=== PATIENT | female | born 1950 | race Caucasian/White ===

== ENCOUNTER 2023-10-28 20:22 | Inpatient (IN) ==
[2023-10-28] MEDS ORDERED: IOPAMIDOL 100 ML BOTTLE IV ONE (20:23)
[2023-10-28] MEDS ORDERED: ALBUTEROL SULFATE 2.5 MG/3 ML NEBULIZER NEB ONE ×2 (20:36→22:11)
[2023-10-28 21:22] LABS: Basophils # (Auto) 0.01 K/mcL (0.00-0.30); Basophils % (Auto) 0.1 % (0.0-2.0); Eosinophils # (Auto) 0.15 K/mcL (0.00-0.70); Eosinophils % (Auto) 1.3 % (0.0-7.0); Hematocrit 41.8 % (34.1-44.9); Hemoglobin 13.4 g/dL (11.2-15.7); Lymphocytes # (Auto) 3.53 K/mcL (1.50-4.80); Mean Cell Volume 94.8 fL (80.0-100.0); Mean Corpuscular HGB Conc 32.1 g/dL (31.0-36.0); Mean Platelet Volume 10.1 fL (8.8-12.5); Monocytes # (Auto) 1.13 K/mcL (0.10-0.90); Monocytes % (Auto) 9.9 % (1.0-12.0); Neutrophils % (Auto) 57.5 % (38.0-78.0); Platelet Count 165 K/mcL (140-440); RBC 4.41 M/mcL (3.59-5.38); Red Cell Distribution Width 13.2 % (11.5-14.5); WBC 11.4 K/mcL (4.5-11.0)
[2023-10-28 21:49] LABS: POC Calcium, Ionized 0.98 (1.16-1.32); POC Creatinine 1.2 (0.6-1.2); POC Potassium 3.5 (3.3-5.1)
[2023-10-28] MEDS ORDERED: 0.9 % SODIUM CHLORIDE 500 ML IV ONE (22:20)
[2023-10-28] MEDS ORDERED: AZITHROMYCIN 500 MG in DEXTROSE 5% IN WATER 250 ML IV ONE (22:20)
[2023-10-28] MEDS ORDERED: AMOXICILLIN/POTASSIUM CLAV 875 MG TABLET PO ONE (22:20)
[2023-10-28 22:41] LABS: proBNP 499.3 pg/mL (<450.0)
[2023-10-29] MEDS ORDERED: MAGNESIUM SULFATE 2 GM/50 ML BAG IV ONE ×3 (00:08→04:20)
[2023-10-29] MEDS ORDERED: LACTATED RINGERS 1,000 ML IV ONE (01:13)
[2023-10-29] MEDS ORDERED: ONDANSETRON 4 MG/2 ML VIAL IV ONE (01:23)
[2023-10-29] MEDS ORDERED: oxyCODONE/APAP 5/325MG TABLET PO PRN (01:23)
[2023-10-29] MEDS ORDERED: NALOXONE HCL 0.4 MG/ML VIAL IV PRN (01:23)
[2023-10-29] MEDS ORDERED: guaiFENesin/CODEINE 10 ML UDC PO ONE (01:41)
[2023-10-29] MEDS: IPRATROPIUM/ALBUTEROL 3 ML AMPUL.NEB NEB PRN ×4 (03:18→18:00)
[2023-10-29] MEDS: LORazepam 0.5 MG TABLET PO PRN (04:11)
[2023-10-29] MEDS ORDERED: RACEPINEPHRINE 0.5 ML AMPUL.NEB NEB ONE (04:14)
[2023-10-29] MEDS ORDERED: morphine 2 MG/ML VIAL IV ONE (04:17)
[2023-10-29] MEDS ORDERED: morphine 2 MG/ML VIAL ONE (04:20)
[2023-10-29] MEDS ORDERED: RACEPINEPHRINE 0.5 ML AMPUL.NEB ONE (04:21)
[2023-10-29] MEDS: methylPREDNISolone SOD SUCC 40 MG/ML VIAL IV SCH ×3 (06:18→22:12)
[2023-10-29] MEDS: RACEPINEPHRINE 0.5 ML AMPUL.NEB NEB SCH ×3 (08:53→21:07)
[2023-10-29] MEDS ORDERED: ONDANSETRON 4 MG/2 ML VIAL IV PRN (09:13)
[2023-10-29] MEDS ORDERED: ONDANSETRON 4 MG ODT TABLET SL PRN (09:18)
[2023-10-29] MEDS ORDERED: MAGNESIUM HYDROXIDE 30 ML ORAL.SUSP PO PRN (09:18)
[2023-10-29] MEDS ORDERED: morphine 4 MG/ML VIAL IV PRN (09:18)
[2023-10-29] MEDS ORDERED: ZOLPIDEM 5 MG TABLET PO PRN (09:18)
[2023-10-29] MEDS ORDERED: MAG HYDROX/AL HYDROX/SIMETH 30 ML ORAL.SUSP PO PRN (09:18)
[2023-10-29] MEDS: LACTATED RINGERS 1,000 ML IV SCH ×2 (09:38→20:35)
[2023-10-29] MEDS: PIOGLITAZONE 15 MG TABLET PO SCH (09:39)
[2023-10-29] MEDS: glipiZIDE 5 MG TAB.XL.24H PO SCH (09:39)
[2023-10-29] MEDS: POTASSIUM CHLORIDE 20 MEQ TABLET PO SCH (09:39)
[2023-10-29] MEDS: ATORVASTATIN 20 MG TABLET PO SCH (09:40)
[2023-10-29] MEDS: DOXAZOSIN 4 MG TABLET PO SCH (09:40)
[2023-10-29] MEDS: SUCRALFATE 1 GM TABLET PO SCH ×2 (09:40→20:31)
[2023-10-29] MEDS ORDERED: DEXTROSE 50% 50 ML VIAL IV PRN (11:24)
[2023-10-29] MEDS ORDERED: DEXTROSE 31 GM ORAL.SUSP PO PRN (11:24)
[2023-10-29] MEDS: INSULIN LISPRO 1 UNIT/0.01 ML UNIT SQ SCH ×3 (11:44→20:32)
[2023-10-29] MEDS: AZITHROMYCIN 500 MG in DEXTROSE 5% IN WATER 250 ML IV SCH (13:46)
[2023-10-29] MEDS: ALBUTEROL SULFATE 2.5 MG/3 ML NEBULIZER NEB PRN ×2 (15:25→21:07)
[2023-10-29] MEDS: ACETAMINOPHEN 325 MG TABLET PO PRN (18:57)
[2023-10-29] MEDS: OMEPRAZOLE 20 MG CAPSULE PO SCH (20:30)
[2023-10-29] MEDS: DOCUSATE SODIUM 100 MG CAPSULE PO SCH (20:30)
[2023-10-29] MEDS: LISINOPRIL 5 MG TABLET PO SCH (20:31)
[2023-10-29] MEDS: SENNOSIDES 1 TABLET PO SCH (20:31)
[2023-10-29] MEDS: LATANOPROST OPHTH DROPS 2.5ML BOTTLE OU SCH (20:31)
[2023-10-29] MEDS: INSULIN GLARGINE, HUMAN 1 UNIT/0.01 ML SQ SCH (20:33)
[2023-10-29] MEDS: ENOXAPARIN 40 MG/0.4 ML SYRINGE SQ SCH (20:36)
[2023-10-29] MEDS: LOSARTAN 50 MG TABLET PO SCH (20:54)
[2023-10-30] MEDS: ACETAMINOPHEN 325 MG TABLET PO PRN ×2 (04:53→21:47)
[2023-10-30 05:58] LABS: Basophils # (Auto) 0 K/mcL (0.00-0.30); Basophils % (Auto) 0 % (0.0-2.0); Eosinophils # (Auto) 0 K/mcL (0.00-0.70); Eosinophils % (Auto) 0 % (0.0-7.0); Hematocrit 38.3 % (34.1-44.9); Hemoglobin 11.6 g/dL (11.2-15.7); Lymphocytes # (Auto) 0.85 K/mcL (1.50-4.80); Lymphocytes % (Auto) 5.2 % (15.5-49.0); Mean Cell Volume 100.3 fL (80.0-100.0); Mean Corpuscular HGB Conc 30.3 g/dL (31.0-36.0); Mean Platelet Volume 10.2 fL (8.8-12.5); Monocytes % (Auto) 2.5 % (1.0-12.0); Neutrophils % (Auto) 91.9 % (38.0-78.0); Platelet Count 152 K/mcL (140-440); RBC 3.82 M/mcL (3.59-5.38); Red Cell Distribution Width 13.9 % (11.5-14.5); WBC 16.2 K/mcL (4.5-11.0)
[2023-10-30] MEDS: methylPREDNISolone SOD SUCC 40 MG/ML VIAL IV SCH ×3 (06:00→22:18)
[2023-10-30] MEDS: ALBUTEROL SULFATE 2.5 MG/3 ML NEBULIZER NEB PRN (06:55)
[2023-10-30 07:15] LABS: ALT/SGPT 13 U/L (<40); AST/SGOT 23 U/L (<32); Albumin 3.3 gm/dL (3.2-5.2); Alkaline Phosphatase 61 U/L (39-117); Bilirubin,Direct < 0.2 mg/dL (0-0.3); Bilirubin,Total 0.4 mg/dL (0.1-1.0); Blood Urea Nitrogen 24 mg/dL (8-23); Calcium 8.5 mg/dL (8.6-10.4); Carbon Dioxide 19 mmol/L (22-30); Chloride 100 mmol/L (96-108); Globulin 3.2 gm/dL (2.2-3.7); Glomerular Filtration Rate 55; Glucose 198 mg/dL (70-105); Lactate Dehydrogenase 323 U/L (135-225); Phosphorous 3.4 mg/dL (2.5-4.5); Triglycerides 62 mg/dL (<150); Uric Acid 3.7 mg/dL (2.5-8.0)
[2023-10-30] MEDS: LACTATED RINGERS 1,000 ML IV SCH (07:34)
[2023-10-30] MEDS: SUCRALFATE 1 GM TABLET PO SCH ×2 (07:37→21:46)
[2023-10-30] MEDS: INSULIN LISPRO 1 UNIT/0.01 ML UNIT SQ SCH ×4 (07:43→21:50)
[2023-10-30] MEDS: RACEPINEPHRINE 0.5 ML AMPUL.NEB NEB SCH ×3 (08:40→21:23)
[2023-10-30] MEDS: AZITHROMYCIN 500 MG in DEXTROSE 5% IN WATER 250 ML IV SCH (08:40)
[2023-10-30] MEDS: ATORVASTATIN 20 MG TABLET PO SCH (08:45)
[2023-10-30] MEDS: POTASSIUM CHLORIDE 20 MEQ TABLET PO SCH (08:45)
[2023-10-30] MEDS: DOCUSATE SODIUM 100 MG CAPSULE PO SCH ×2 (08:45→21:49)
[2023-10-30] MEDS: DOXAZOSIN 4 MG TABLET PO SCH (08:46)
[2023-10-30] MEDS: glipiZIDE 5 MG TAB.XL.24H PO SCH (08:46)
[2023-10-30] MEDS: PIOGLITAZONE 15 MG TABLET PO SCH (08:46)
[2023-10-30] MEDS: ENOXAPARIN 40 MG/0.4 ML SYRINGE SQ SCH ×2 (08:46→21:50)
[2023-10-30] MEDS: LORazepam 0.5 MG TABLET PO PRN (08:52)
[2023-10-30] MEDS ORDERED: PNEUMOCOCCAL 23-VAL P-SAC VAC 0.5 ML SYRINGE IM ONE (10:00)
[2023-10-30] MEDS: guaiFENesin/CODEINE 10 ML UDC PO PRN (10:07)
[2023-10-30] MEDS ORDERED: RACEPINEPHRINE 0.5 ML AMPUL.NEB NEB SCH (13:00)
[2023-10-30] MEDS: IPRATROPIUM/ALBUTEROL 3 ML AMPUL.NEB NEB PRN (21:23)
[2023-10-30] MEDS: OMEPRAZOLE 20 MG CAPSULE PO SCH (21:46)
[2023-10-30] MEDS: LISINOPRIL 5 MG TABLET PO SCH (21:48)
[2023-10-30] MEDS: LOSARTAN 50 MG TABLET PO SCH (21:49)
[2023-10-30] MEDS: SENNOSIDES 1 TABLET PO SCH (21:49)
[2023-10-30] MEDS: INSULIN GLARGINE, HUMAN 1 UNIT/0.01 ML SQ SCH (21:51)
[2023-10-30] MEDS: LATANOPROST OPHTH DROPS 2.5ML BOTTLE OU SCH (21:51)
[2023-10-31] MEDS: LORazepam 0.5 MG TABLET PO PRN (00:23)
[2023-10-31] MEDS: guaiFENesin/CODEINE 10 ML UDC PO PRN ×5 (00:23→21:14)
[2023-10-31] MEDS: ALBUTEROL SULFATE 2.5 MG/3 ML NEBULIZER NEB PRN (00:37)
[2023-10-31] MEDS: IPRATROPIUM/ALBUTEROL 3 ML AMPUL.NEB NEB PRN (03:33)
[2023-10-31] MEDS: RACEPINEPHRINE 0.5 ML AMPUL.NEB NEB SCH ×5 (03:34→23:13)
[2023-10-31] MEDS: methylPREDNISolone SOD SUCC 40 MG/ML VIAL IV SCH (06:10)
[2023-10-31 06:12] LABS: Basophils # (Auto) 0 K/mcL (0.00-0.30); Basophils % (Auto) 0 % (0.0-2.0); Eosinophils # (Auto) 0 K/mcL (0.00-0.70); Eosinophils % (Auto) 0 % (0.0-7.0); Hematocrit 34.7 % (34.1-44.9); Hemoglobin 10.9 g/dL (11.2-15.7); Lymphocytes # (Auto) 0.52 K/mcL (1.50-4.80); Lymphocytes % (Auto) 3.3 % (15.5-49.0); Mean Cell Volume 97.7 fL (80.0-100.0); Mean Corpuscular HGB Conc 31.4 g/dL (31.0-36.0); Mean Platelet Volume 10.3 fL (8.8-12.5); Monocytes # (Auto) 0.47 K/mcL (0.10-0.90); Neutrophils % (Auto) 93.3 % (38.0-78.0); Platelet Count 159 K/mcL (140-440); RBC 3.55 M/mcL (3.59-5.38); Red Cell Distribution Width 14.2 % (11.5-14.5); WBC 15.6 K/mcL (4.5-11.0)
[2023-10-31 06:22] LABS: Blood Urea Nitrogen 34 mg/dL (8-23); Calcium 8.9 mg/dL (8.6-10.4); Carbon Dioxide 24 mmol/L (22-30); Chloride 103 mmol/L (96-108); Glomerular Filtration Rate 55; Glucose 224 mg/dL (70-105)
[2023-10-31] MEDS: BENZONATATE 100 MG CAPSULE PO PRN ×3 (07:02→21:14)
[2023-10-31] MEDS: INSULIN LISPRO 1 UNIT/0.01 ML UNIT SQ SCH ×4 (08:32→21:01)
[2023-10-31] MEDS: SUCRALFATE 1 GM TABLET PO SCH ×2 (08:33→21:00)
[2023-10-31] MEDS: glipiZIDE 5 MG TAB.XL.24H PO SCH (08:33)
[2023-10-31] MEDS: OXYBUTYNIN CHLORIDE 5 MG TAB.XL.24H PO SCH (08:33)
[2023-10-31] MEDS: PIOGLITAZONE 15 MG TABLET PO SCH (08:33)
[2023-10-31] MEDS: ENOXAPARIN 40 MG/0.4 ML SYRINGE SQ SCH ×2 (08:33→21:00)
[2023-10-31] MEDS: DOCUSATE SODIUM 100 MG CAPSULE PO SCH ×2 (08:33→21:01)
[2023-10-31] MEDS: DOXAZOSIN 4 MG TABLET PO SCH (08:34)
[2023-10-31] MEDS: ATORVASTATIN 20 MG TABLET PO SCH (08:34)
[2023-10-31] MEDS: POTASSIUM CHLORIDE 20 MEQ TABLET PO SCH (08:34)
[2023-10-31] MEDS: FUROSEMIDE 40 MG TABLET PO SCH (08:34)
[2023-10-31] MEDS: AZITHROMYCIN 250 MG TABLET PO SCH (12:09)
[2023-10-31] MEDS: predniSONE 20 MG TABLET PO SCH (12:12)
[2023-10-31] MEDS ORDERED: RACEPINEPHRINE 0.5 ML AMPUL.NEB ONE (13:49)
[2023-10-31] MEDS: OMEPRAZOLE 20 MG CAPSULE PO SCH (20:59)
[2023-10-31] MEDS: LISINOPRIL 5 MG TABLET PO SCH (20:59)
[2023-10-31] MEDS: LOSARTAN 50 MG TABLET PO SCH (20:59)
[2023-10-31] MEDS: LATANOPROST OPHTH DROPS 2.5ML BOTTLE OU SCH (21:00)
[2023-10-31] MEDS ORDERED: INSULIN GLARGINE, HUMAN 1 UNIT/0.01 ML SQ SCH (21:00)
[2023-10-31] MEDS: SENNOSIDES 1 TABLET PO SCH (21:02)
[2023-11-01] MEDS: guaiFENesin/CODEINE 10 ML UDC PO PRN ×2 (03:17→08:41)
[2023-11-01] MEDS: BENZONATATE 100 MG CAPSULE PO PRN ×2 (03:17→10:28)
[2023-11-01] MEDS: ALBUTEROL SULFATE 2.5 MG/3 ML NEBULIZER NEB PRN (03:38)
[2023-11-01] MEDS: IPRATROPIUM/ALBUTEROL 3 ML AMPUL.NEB NEB PRN (06:34)
[2023-11-01] MEDS: RACEPINEPHRINE 0.5 ML AMPUL.NEB NEB SCH (06:34)
[2023-11-01] MEDS: INSULIN LISPRO 1 UNIT/0.01 ML UNIT SQ SCH (08:41)
[2023-11-01] MEDS: ENOXAPARIN 40 MG/0.4 ML SYRINGE SQ SCH (08:41)
[2023-11-01] MEDS: AZITHROMYCIN 250 MG TABLET PO SCH (08:42)
[2023-11-01] MEDS: predniSONE 20 MG TABLET PO SCH (08:42)
[2023-11-01] MEDS: PIOGLITAZONE 15 MG TABLET PO SCH (08:42)
[2023-11-01] MEDS: glipiZIDE 5 MG TAB.XL.24H PO SCH (08:42)
[2023-11-01] MEDS: SUCRALFATE 1 GM TABLET PO SCH (08:42)
[2023-11-01] MEDS: DOCUSATE SODIUM 100 MG CAPSULE PO SCH (08:43)
[2023-11-01] MEDS: DOXAZOSIN 4 MG TABLET PO SCH (08:43)
[2023-11-01] MEDS: OXYBUTYNIN CHLORIDE 5 MG TAB.XL.24H PO SCH (08:43)
[2023-11-01] MEDS: FUROSEMIDE 40 MG TABLET PO SCH (08:43)
[2023-11-01] MEDS: POTASSIUM CHLORIDE 20 MEQ TABLET PO SCH (08:43)
[2023-11-01] MEDS: ATORVASTATIN 20 MG TABLET PO SCH (08:43)
[2023-11-01] MEDS ORDERED: PNEUMOCOCCAL 23-VAL P-SAC VAC 0.5 ML SYRINGE IM ONE (10:00)
== END 2023-11-01 11:40 | disposition home or self-care (01) | DRG 871 ==
LOC: ED 20:22 → ICU 10-29 02:09
PROVIDERS: ADMIT Internal Medicine; ATTEND Internal Medicine

== ENCOUNTER 2023-11-26 16:08 | Inpatient (IN) ==
[2023-11-26] MEDS ORDERED: IOPAMIDOL 100 ML BOTTLE IV ONE (16:09)
[2023-11-26] MEDS ORDERED: ONDANSETRON 4 MG/2 ML VIAL ONE (16:33)
[2023-11-26] MEDS ORDERED: ONDANSETRON 4 MG/2 ML VIAL IV ONE ×2 (16:33→19:40)
[2023-11-26] MEDS ORDERED: 0.9 % SODIUM CHLORIDE 1,000 ML IV ONE (16:48)
[2023-11-26] MEDS ORDERED: MECLIZINE 25 MG TABLET PO ONE (16:50)
[2023-11-26] MEDS ORDERED: IPRATROPIUM/ALBUTEROL 3 ML AMPUL.NEB NEB ONE (16:55)
[2023-11-26 17:04] LABS: Basophils # (Auto) 0.01 K/mcL (0.00-0.30); Basophils % (Auto) 0.2 % (0.0-2.0); Eosinophils # (Auto) 0.07 K/mcL (0.00-0.70); Eosinophils % (Auto) 1.4 % (0.0-7.0); Hematocrit 43.3 % (34.1-44.9); Hemoglobin 13.6 g/dL (11.2-15.7); Lymphocytes % (Auto) 30.9 % (15.5-49.0); Mean Cell Volume 95.6 fL (80.0-100.0); Mean Corpuscular HGB Conc 31.4 g/dL (31.0-36.0); Mean Platelet Volume 10.1 fL (8.8-12.5); Monocytes # (Auto) 0.49 K/mcL (0.10-0.90); Monocytes % (Auto) 9.5 % (1.0-12.0); Neutrophils % (Auto) 57.8 % (38.0-78.0); Platelet Count 192 K/mcL (140-440); RBC 4.53 M/mcL (3.59-5.38); Red Cell Distribution Width 14.7 % (11.5-14.5); WBC 5.2 K/mcL (4.5-11.0)
[2023-11-26 17:20] LABS: ALT/SGPT 20 U/L (<40); AST/SGOT 16 U/L (<32); Albumin 3.9 gm/dL (3.2-5.2); Albumin/Globulin Ratio 1.3 (1.0-2.3); Alkaline Phosphatase 67 U/L (39-117); Bilirubin,Total 0.2 mg/dL (0.1-1.0); Blood Urea Nitrogen 25 mg/dL (8-23); Carbon Dioxide 23 mmol/L (22-30); Chloride 101 mmol/L (96-108); Glomerular Filtration Rate 49; Glucose 179 mg/dL (70-105)
[2023-11-26 17:41] LABS: Prothrombin Time 13.8 sec (11.9-14.5)
[2023-11-26 17:42] LABS: Partial Thromboplastin Time 27.7 sec (20.0-37.0)
[2023-11-26] MEDS ORDERED: ASPIRIN 81 MG TAB.CHEW CHEWED ONE (19:36)
[2023-11-26 20:39] LABS: Appearance,Urine Clear (Clear); Bilirubin,Urine Negative (Negative); Color,Urine Yellow; Culture Indicated,Urine No; Glucose,Urine (UA) 500 mg/dL (Negative); Ketones,Urine Negative (Negative); Leukocyte Esterase,Urine Negative /uL (Negative); Nitrate,Urine Negative (Negative); Protein,Urine Negative (Negative); Urine Blood Negative ery/mcL (Negative); Urine RBC 0 /hpf (0-3); Urine Squamous Epithelial Cell 0 /hpf (0-4); Urine WBC 0 /hpf (0-4); Urobilinogen,Urine Normal
[2023-11-26] MEDS ORDERED: ACETAMINOPHEN 325 MG TABLET PO PRN (21:39)
[2023-11-26] MEDS ORDERED: ONDANSETRON 4 MG/2 ML VIAL IV PRN (21:39)
[2023-11-26] MEDS ORDERED: MAGNESIUM HYDROXIDE 30 ML ORAL.SUSP PO PRN (21:39)
[2023-11-26] MEDS ORDERED: ALBUTEROL SULFATE 60 PUFF INHALER INH PRN (22:34)
[2023-11-26] MEDS ORDERED: BIMATOPROST 0.01% OPHTHALMIC SCH (22:35)
[2023-11-26] MEDS ORDERED: APIXABAN 5 MG TABLET PO ONE (23:16)
[2023-11-26] MEDS: APIXABAN 2.5 MG TABLET PO ONE ×2 (23:25→23:31)
[2023-11-26] MEDS: INSULIN LISPRO 1 UNIT/0.01 ML UNIT SQ SCH (23:27)
[2023-11-26] MEDS: ATENOLOL 25 MG TABLET PO SCH (23:30)
[2023-11-26] MEDS: 0.9 % SODIUM CHLORIDE 10 ML SYRINGE IV SCH (23:30)
[2023-11-27] MEDS: IPRATROPIUM/ALBUTEROL 3 ML AMPUL.NEB NEB SCH ×4 (01:05→19:55)
[2023-11-27] MEDS: 0.9 % SODIUM CHLORIDE 10 ML SYRINGE IV SCH ×3 (04:57→22:40)
[2023-11-27 05:50] LABS: Hemoglobin A1C 8.1 % Hgb (4.0-6.0)
[2023-11-27] MEDS ORDERED: guaiFENesin/DEXTROMETHORPHAN 5ML UD CUP PO PRN (06:33)
[2023-11-27] MEDS: oxyCODONE IR 5 MG TABLET PO PRN ×2 (07:44→20:50)
[2023-11-27] MEDS: INSULIN LISPRO 1 UNIT/0.01 ML UNIT SQ SCH ×4 (08:06→20:24)
[2023-11-27] MEDS: ATENOLOL 25 MG TABLET PO SCH (08:25)
[2023-11-27] MEDS: OXYBUTYNIN CHLORIDE 5 MG TAB.XL.24H PO SCH (08:25)
[2023-11-27] MEDS: glipiZIDE 5 MG TAB.XL.24H PO SCH (08:25)
[2023-11-27] MEDS: PIOGLITAZONE 15 MG TABLET PO SCH (08:25)
[2023-11-27] MEDS: SUCRALFATE 1 GM TABLET PO SCH ×2 (08:25→20:22)
[2023-11-27] MEDS: POTASSIUM CHLORIDE 20 MEQ TABLET PO SCH (08:26)
[2023-11-27] MEDS: FUROSEMIDE 40 MG TABLET PO SCH (08:26)
[2023-11-27] MEDS: APIXABAN 5 MG TABLET PO SCH ×2 (08:26→20:22)
[2023-11-27] MEDS ORDERED: ATORVASTATIN 20 MG TABLET PO SCH (09:00)
[2023-11-27] MEDS ORDERED: SUMAtriptan SUCCINATE 6 MG/0.5 ML VIAL SQ ONE ×2 (17:32→21:32)
[2023-11-27] MEDS: LATANOPROST OPHTH DROPS 2.5ML BOTTLE OD SCH ×2 (20:20→23:56)
[2023-11-27] MEDS: OMEPRAZOLE 20 MG CAPSULE PO SCH (20:22)
[2023-11-27] MEDS: INSULIN GLARGINE, HUMAN 1 UNIT/0.01 ML SQ SCH (20:23)
[2023-11-27] MEDS ORDERED: MECLIZINE 25 MG TABLET PO PRN (21:00)
[2023-11-27] MEDS ORDERED: SUMAtriptan SUCCINATE 50 MG TABLET PO PRN (21:32)
[2023-11-28] MEDS: IPRATROPIUM/ALBUTEROL 3 ML AMPUL.NEB NEB SCH ×4 (01:10→19:00)
[2023-11-28] MEDS: 0.9 % SODIUM CHLORIDE 10 ML SYRINGE IV SCH ×3 (06:53→21:10)
[2023-11-28] MEDS: INSULIN LISPRO 1 UNIT/0.01 ML UNIT SQ SCH ×4 (07:42→21:04)
[2023-11-28] MEDS: POTASSIUM CHLORIDE 20 MEQ TABLET PO SCH (08:04)
[2023-11-28] MEDS: OXYBUTYNIN CHLORIDE 5 MG TAB.XL.24H PO SCH (08:04)
[2023-11-28] MEDS: PIOGLITAZONE 15 MG TABLET PO SCH (08:04)
[2023-11-28] MEDS: glipiZIDE 5 MG TAB.XL.24H PO SCH (08:04)
[2023-11-28] MEDS: ATORVASTATIN 20 MG TABLET PO SCH (08:04)
[2023-11-28] MEDS: SUCRALFATE 1 GM TABLET PO SCH ×2 (08:05→21:06)
[2023-11-28] MEDS: FUROSEMIDE 40 MG TABLET PO SCH (08:05)
[2023-11-28] MEDS: ATENOLOL 25 MG TABLET PO SCH (08:05)
[2023-11-28] MEDS: APIXABAN 5 MG TABLET PO SCH ×2 (08:05→21:07)
[2023-11-28] MEDS: INSULIN GLARGINE, HUMAN 1 UNIT/0.01 ML SQ SCH (21:04)
[2023-11-28] MEDS: OMEPRAZOLE 20 MG CAPSULE PO SCH (21:07)
[2023-11-28] MEDS: LATANOPROST OPHTH DROPS 2.5ML BOTTLE OD SCH (21:09)
[2023-11-29] MEDS: IPRATROPIUM/ALBUTEROL 3 ML AMPUL.NEB NEB SCH ×4 (01:15→11:50)
[2023-11-29] MEDS: 0.9 % SODIUM CHLORIDE 10 ML SYRINGE IV SCH (04:01)
[2023-11-29] MEDS: INSULIN LISPRO 1 UNIT/0.01 ML UNIT SQ SCH (07:23)
[2023-11-29] MEDS: PIOGLITAZONE 15 MG TABLET PO SCH (07:46)
[2023-11-29] MEDS: ATORVASTATIN 20 MG TABLET PO SCH (07:46)
[2023-11-29] MEDS: SUCRALFATE 1 GM TABLET PO SCH (07:46)
[2023-11-29] MEDS: POTASSIUM CHLORIDE 20 MEQ TABLET PO SCH (07:47)
[2023-11-29] MEDS: APIXABAN 5 MG TABLET PO SCH (07:47)
[2023-11-29] MEDS: ATENOLOL 25 MG TABLET PO SCH (07:47)
[2023-11-29] MEDS: OXYBUTYNIN CHLORIDE 5 MG TAB.XL.24H PO SCH (07:47)
[2023-11-29] MEDS: glipiZIDE 5 MG TAB.XL.24H PO SCH (07:47)
[2023-11-29] MEDS: FUROSEMIDE 40 MG TABLET PO SCH (07:47)
== END 2023-11-29 12:55 | disposition home or self-care (01) | DRG 149 ==
LOC: ED 16:08 → ICU 16:08
PROVIDERS: ADMIT Internal Medicine; ATTEND Internal Medicine